=== PATIENT | male | born 1980 | race African-American/Black ===

== ENCOUNTER 2023-12-30 09:22 | Emergency (ER) | payer MEDICAID ==
[~2023-12-30] VITALS: Ht 188 cm; Wt 150.0 kg
[2023-12-30] MEDS: methylPREDNISolone SOD SUCC 125 MG/2 ML VL IM ONE (09:55)
[2023-12-30] MEDS: ALBUTEROL SULF 2.5 MG/0.5ML(0.5%) NEB SOLN HHN ONE (10:36)
[2023-12-30] MEDS: IPRATROPIUM BROM 0.5 MG/2.5ML INH SOL HHN ONE (10:36)
[2023-12-30] MEDS ORDERED: AZIT1POW PO (11:57)
[2023-12-30] MEDS ORDERED: METH4PAK PO (11:57)
[2023-12-30 12:09] VITALS: BP 142/78; PULSE 99; RESP 19; O2SAT 96
== END 2023-12-30 12:17 | disposition home or self-care (01) ==
LOC: ER 09:22
DX: J45.909 Unspecified asthma, uncomplicated (principal); E11.9 Type 2 diabetes mellitus without complications; R07.89 Other chest pain; Z79.2 Long term (current) use of antibiotics; Z79.899 Other long term (current) drug therapy
CPT/HCPCS: 71046; 94640; 96372; 99283; J2919; J7644; 94644